=== PATIENT | female | born 1990 | race American Indian/Alaskan Native ===

== ENCOUNTER 2017-04-04 14:33 | Emergency (ER) | payer MEDICAID ==
[2017-04-04 14:43] VITALS: BP 119/88
--- NOTE | 2017-04-04 14:49 | Emergency Department Report ---
Chief Complaint: Urogenital-Female Stated Complaint: CHEST PAIN/UTI Time Seen by Provider: 04/04/17 14:44 - HPI History of Present Illness: bladder pressure and smell to odor since yesterday - ROS Review of Systems: - back pain - Exam Vital Signs: Vital Signs 04/04/17 04/04/17 14:41 14:42 Temperature 98.8 F Pulse Rate 96 H Respiratory 20 Rate Blood Pressure 119/88 O2 Sat by Pulse 99 Oximetry Physical Exam: no cva tenderness tessy MSE screening note: Focused history and physical exam performed. Due to findings the following was ordered: labs ED Disposition for MSE Condition: Stable
[2017-04-04 15:54] LABS: Bilirubin,Urine NEG (Negative); Blood,Urine MOD (Negative); Ketones,Urine NEG (Negative); Leukocyte Esterase,Urine MOD (Negative); Mucus,Urine FEW /HPF; Nitrite,Urine NEG (Negative); Protein,Urine <15 mg/dL mg/dL (Negative); Urobilinogen,Urine < 2.0 mg/dL (<2.0)
--- NOTE | 2017-04-04 16:48 | Emergency Department Report ---
ED General Adult HPI - General Chief complaint: Urogenital-Female Stated complaint: uti Time Seen by Provider: 04/04/17 14:44 Source: patient Mode of arrival: Ambulatory Limitations: No Limitations - History of Present Illness Initial comments: PT c/o possible UTI. PT stats she feels pressure on her bladder and she is having dysuria and retention. Also, no period since January. MD Complaint: UTI -: Gradual, days(s) Location: abdomen Severity scale (0 -10): 7 Quality: other (pressure ) Consistency: intermittent Worsens with: other (urination, feels bladder pressure and dysuria) Associated Symptoms: denies: fever/chills, loss of appetite, nausea/vomiting - Related Data Previous Rx's Medication Instructions Recorded Last Taken Type Cephalexin [Keflex] 500 mg PO Q12HR #14 cap 04/04/17 Unknown Rx Allergies Allergy/AdvReac Type Severity Reaction Status Date / Time No Known Allergies Allergy Unverified 04/04/17 14:47 ED Review of Systems ROS: Stated complaint: CHEST PAIN/UTI Other details as noted in HPI Comment: All other systems reviewed and negative Constitutional: denies: chills, fever, malaise Gastrointestinal: abdominal pain. denies: nausea, vomiting Genitourinary: urgency, dysuria, frequency, abnormal menses (lmp January 2017 ), other (retention ). denies: hematuria, discharge ED Past Medical Hx - Past Medical History Previous Medical History?: No - Surgical History Past Surgical History?: No - Social History Smoking Status: Never Smoker Substance Use Type: None - Medications Home Medications: Home Medications Medication Instructions Recorded Confirmed Last Taken Type Cephalexin [Keflex] 500 mg PO Q12HR #14 cap 04/04/17 Unknown Rx ED Physical Exam - General Limitations: No Limitations General appearance: alert, in no apparent distress - Head Head exam: Present: atraumatic, normocephalic, normal inspection - Eye Eye exam: Present: EOMI, other (colored contacts ). Absent: conjunctival injection, nystagmus - ENT ENT exam: Present: normal exam, mucous membranes moist, normal external ear exam - Neck Neck exam: Present: normal inspection, full ROM - Respiratory Respiratory exam: Present: normal lung sounds bilaterally. Absent: decreased breath sounds - Cardiovascular Cardiovascular Exam: Present: regular rate, normal rhythm, normal heart sounds - GI/Abdominal GI/Abdominal exam: Present: soft. Absent: distended, tenderness - Extremities Exam Extremities exam: Present: normal inspection, full ROM - Back Exam Back exam: Present: normal inspection, full ROM. Absent: tenderness, CVA tenderness (R), CVA tenderness (L), muscle spasm, paraspinal tenderness, vertebral tenderness - Neurological Exam Neurological exam: Present: alert, oriented X3, normal gait - Expanded Neurological Exam Expanded Patient oriented to: Present: person, place, time Speech: Present: fluid speech Best Eye Response ([place]): (4) open spontaneously Best Motor Response ([place]): (6) obeys commands Best Verbal Response ([place]): (5) oriented [place] Total: 15 - Psychiatric Psychiatric exam: Present: normal affect, normal mood - Skin Skin exam: Present: warm, dry, intact, normal color ED Course Vital Signs 04/04/17 04/04/17 14:41 14:42 Temperature 98.8 F Pulse Rate 96 H Respiratory 20 Rate Blood Pressure 119/88 O2 Sat by Pulse 99 Oximetry - Reevaluation(s) Reevaluation #1: 04/04/17 16:50 PT states she stopped depo 3 months ago. likely reason for irregular cycle. pt aware of lab results. pt has no questions at this time. - Pulse Oximetry Interpretation Digit-Finger Initial Pulse Oximetry Readin Actions Taken: none ED Medical Decision Making - Differential Diagnosis uti, Critical Care Time: No Critical care attestation.: If time is entered above; I have spent that time in minutes in the direct care of this critically ill patient, excluding procedure time. ED Disposition Clinical Impression: Amenorrhea UTI (urinary tract infection) Qualifiers: Urinary tract infection type: acute cystitis Hematuria presence: with hematuria Qualified Code(s): N30.01 - Acute cystitis with hematuria Disposition: TO HOME OR SELFCARE Is pt being admited?: No Does the pt Need Aspirin: No Condition: Stable Instructions: Urinary Tract Infection in Women (ED), Dysuria (ED) Additional Instructions: Increase H20 Do not hold your urine at work OTC AZO for symptom release, you can take this for two days Return to the ED if you develop back pain, fevers, chills, nausea or vomiting Prescriptions: Cephalexin [Keflex] 500 mg PO Q12HR #14 cap Referrals: [facility] [Provider Group] - 3-5 Days [facility] [Outside] - 3-5 Days [facility] [Outside] - 3-5 Days PANCHITO HERNANDEZ MD [Staff Physician] - 3-5 Days Time of Disposition: 16:54
== END 2017-04-04 17:17 | disposition home or self-care (01) ==
LOC: ED 14:33
DX: N91.2 Amenorrhea, unspecified (principal); N30.01 Acute cystitis with hematuria
CPT/HCPCS: 81001; 81025; 87076; 87086; 87186; 99283

== ENCOUNTER 2018-10-03 19:26 | Emergency (ER) | payer MEDICAID | END 2018-10-03 21:25 | disposition left against medical advice (07) | LOC: ED 19:26 ==